=== PATIENT | male | born 1980 | race Caucasian/White ===

== ENCOUNTER 2020-08-03 14:06 | Emergency (ER) | payer SELFPAY ==
[~2020-08-03] VITALS: Ht 190.5 cm; Wt 127.0 kg
--- NOTE | 2020-08-03 14:30 | NUR ---
[id number], FOUND IN THE PARKING LOT, FOR ETOH, NO COMPLAINTS. PT EASILY AROUSABLE BUT WILL GO BACK TO SLEEP. VSS. RR EVEN & UNLABORED. PLACED ON HOT DIP GALVANIZER, SR. AWAITING EVAL BY SHELBY. WILL CONT TO MONITOR.
--- NOTE | 2020-08-03 15:00 | NUR ---
DR. ARMAS AT FOR BENYAL.
--- NOTE | 2020-08-03 16:30 | NUR ---
PT GIVEN A MEAL.
--- NOTE | 2020-08-03 18:30 | NUR ---
Patient discharged to home in stable condition. Written and verbal after care instructions given. Patient verbalizes understanding of instruction.
[2020-08-03 19:49] VITALS: BP 120/78
== END 2020-08-03 18:30 | disposition home or self-care (01) ==
LOC: ER 14:08
DX: F10.10 Alcohol abuse, uncomplicated (principal); Y90.9 Presence of alcohol in blood, level not specified; Z59.0 Homelessness